=== PATIENT | female | born 1990 | race Caucasian/White ===

== ENCOUNTER 2016-11-10 13:11 | Emergency (ER) | payer MEDICAID, SELFPAY ==
[~2016-11-10] VITALS: Ht 149.9 cm; Wt 92.9 kg
[2016-11-10 13:19] VITALS: BP 124/79
[2016-11-10 14:34] LABS: BLOOD UREA NITROGEN 8 mg/dL (7-18)
[2016-11-10 15:19] LABS: PATH.CAST-FLAG NOT PRESENT; SPERM-FLAG NOT PRESENT; SRC-FLAG NOT PRESENT; XTAL-FLAG NOT PRESENT; YLC-FLAG NOT PRESENT
== END 2016-11-10 15:46 | disposition home or self-care (01) ==
LOC: ED 15:36
DX: N92.4 Excessive bleeding in the premenopausal period (principal)
CPT/HCPCS: 36415; 76830; 80048; 81001; 82040; 84703; 85025